=== PATIENT | female | born 1935 | race Caucasian/White ===

== ENCOUNTER → 2017-03-06 | Outpatient (CLI) | payer OTHER ==
[~2017-03-06] MED LIST: ASPI-515 PO; CALC-72 PO; HYDR-3307 PO; LOVA40TA2 PO; METO50TA82 PO; OMEP-110 PO; TRAZ100T15 PO; UBID200C4 PO
== END | disposition home or self-care (01) ==
LOC: WOUND 13:00
PROVIDERS: ATTEND Physician Assistant
DX: S51.001A Unspecified open wound of right elbow, initial encounter (principal); I10 Essential (primary) hypertension; K21.9 Gastro-esophageal reflux disease without esophagitis; E78.5 Hyperlipidemia, unspecified; E66.9 Obesity, unspecified; M19.90 Unspecified osteoarthritis, unspecified site; M81.0 Age-related osteoporosis without current pathological fracture; Z68.35 Body mass index [BMI] 35.0-35.9, adult; Y93.89 Activity, other specified; Y99.8 Other external cause status; Y92.89 Other specified places as the place of occurrence of the external cause; X58.XXXA Exposure to other specified factors, initial encounter
CPT/HCPCS: 11042; G0463; WOU0463

== ENCOUNTER → 2017-03-13 | Outpatient (CLI) | payer OTHER ==
[~2017-03-13] MED LIST changes: +CALC-534 PO; -CALC-72 PO; -UBID200C4 PO; +UBID200C7 PO
== END | disposition home or self-care (01) ==
LOC: WOUND 09:56
PROVIDERS: ATTEND Physician Assistant
DX: S51.011D Laceration without foreign body of right elbow, subsequent encounter (principal); I10 Essential (primary) hypertension; K21.9 Gastro-esophageal reflux disease without esophagitis; E78.5 Hyperlipidemia, unspecified; M19.90 Unspecified osteoarthritis, unspecified site; M81.0 Age-related osteoporosis without current pathological fracture; E66.9 Obesity, unspecified; Z68.35 Body mass index [BMI] 35.0-35.9, adult; X58.XXXD Exposure to other specified factors, subsequent encounter
CPT/HCPCS: 97597

== ENCOUNTER → 2017-03-20 | Outpatient (CLI) | payer OTHER | END | disposition home or self-care (01) | LOC: WOUND 10:19 | PROVIDERS: ATTEND Physician Assistant | DX: S51.011D Laceration without foreign body of right elbow, subsequent encounter (principal); I10 Essential (primary) hypertension; K21.9 Gastro-esophageal reflux disease without esophagitis; G89.29 Other chronic pain; E78.5 Hyperlipidemia, unspecified; E66.9 Obesity, unspecified; M19.90 Unspecified osteoarthritis, unspecified site; M81.0 Age-related osteoporosis without current pathological fracture; X58.XXXD Exposure to other specified factors, subsequent encounter; Y92.89 Other specified places as the place of occurrence of the external cause; Y99.8 Other external cause status; Z68.35 Body mass index [BMI] 35.0-35.9, adult | CPT/HCPCS: 97597 ==

== ENCOUNTER → 2017-03-20 | Outpatient (CLI) | payer OTHER | END | disposition home or self-care (01) | LOC: CFH 08:49 | PROVIDERS: ATTEND Physician Assistant | DX: L98.499 Non-pressure chronic ulcer of skin of other sites with unspecified severity (principal); S51.011A Laceration without foreign body of right elbow, initial encounter; X58.XXXA Exposure to other specified factors, initial encounter; Y93.89 Activity, other specified; Y92.89 Other specified places as the place of occurrence of the external cause; Y99.8 Other external cause status ==

== ENCOUNTER → 2017-03-27 | Outpatient (CLI) | payer OTHER | END | disposition home or self-care (01) | LOC: WOUND 09:35 | PROVIDERS: ATTEND Physician Assistant | DX: S51.011D Laceration without foreign body of right elbow, subsequent encounter (principal); I10 Essential (primary) hypertension; K21.9 Gastro-esophageal reflux disease without esophagitis; E78.5 Hyperlipidemia, unspecified; E66.9 Obesity, unspecified; M19.90 Unspecified osteoarthritis, unspecified site; M81.0 Age-related osteoporosis without current pathological fracture; X58.XXXD Exposure to other specified factors, subsequent encounter; Y92.89 Other specified places as the place of occurrence of the external cause; Y99.8 Other external cause status | CPT/HCPCS: 17250 ==

== ENCOUNTER → 2017-04-03 | Outpatient (CLI) | payer OTHER | END | disposition home or self-care (01) | LOC: WOUND 09:27 | PROVIDERS: ATTEND Physician Assistant | DX: S51.011D Laceration without foreign body of right elbow, subsequent encounter (principal); M81.0 Age-related osteoporosis without current pathological fracture; I10 Essential (primary) hypertension; K21.9 Gastro-esophageal reflux disease without esophagitis; E78.5 Hyperlipidemia, unspecified; E66.9 Obesity, unspecified; M19.90 Unspecified osteoarthritis, unspecified site; Z68.35 Body mass index [BMI] 35.0-35.9, adult; X58.XXXD Exposure to other specified factors, subsequent encounter; Y92.89 Other specified places as the place of occurrence of the external cause; Y99.8 Other external cause status | CPT/HCPCS: G0463; WOU0463 ==